=== PATIENT | female | born 1955 | race American Indian/Alaskan Native ===

== ENCOUNTER 2016-08-08 20:51 | Emergency (ER) | payer OTHER ==
[2016-08-08 20:54] VITALS: BP 127/83
[2016-08-08] MEDS ORDERED: Promethazine 12.5 MG in Sodium Chloride 0.9% 50 ML IV ONE (21:44)
[2016-08-08] MEDS ORDERED: Sodium Chloride 0.9% 1,000 ML IV SCH (21:45)
--- NOTE | 2016-08-09 00:05 | EDM.PDOC ---
ED HPI GI/ABDOMINAL - General Chief Complaint: Gastrointestinal Problem Stated Complaint: nausea Time Seen by Provider: 08/08/16 21:00 Source of Information: Reports: Patient, Family, Old records History Limitations: Reports: No limitations, Other (Poor Historian-Poor tracking-) - History of Present Illness INITIAL COMMENTS - FREE TEXT/NARRATIVE: Patient to ER for evaluation of nausea and abdominal distention. She indicates she has had complete work up with EGD and gastroenterology. Patient states was seen at [facility] this am with full work up laboratory testing WNL- IVF hydration with MRI and CT of abdomen. Patient states was discharged from [facility] despite persistant nausea and abdominal discomfort-constipation. She then this evening presents to [facility]. History taken indicates incomplete treatment for H-Pylori as intolerance to antibiotics. Patient verbalizes and is requesting surgical procedure to cut out infection H-Pylori. Symptom Onset Date: 08/08/16 Symptom Onset Time: 08:00 (Abdominal distention-nausea) Timing/Duration: Reports: Getting worse, Waxing/waning, Other (Indicates persistant GI S/S since 2006.) Location: periumbilical Quality: Reports: fullness, other (Unable to burp or pass gas.) Severity: mild Improves with: Reports: vomiting Worsens with: Reports: other (Eating-unable to tolerate food for 1 weeks) Associated Symptoms (-Female): Reports: denies other symptoms, constipation, loss of appetite, nausea/vomiting. 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 IV hydration -nausea control labs including CT and MRI WNL.) - Related Data Allergies/ADRs: Allergies Allergy/AdvReac Type Severity Reaction Status Date / Time No Known Allergies Allergy Verified 08/08/16 20:54 Home Meds: Home Meds Aspirin [Halfprin] 81 mg PO DAILY 07/06/13 [History] Cyclobenzaprine [Flexeril] 10 mg PO DAILY PRN 07/06/13 [History] Multivitamins [Multivitamins] 1 each PO DAILY 07/06/13 [History] Nitroglycerin [Nitrostat] 0.4 mg SL ASDIRECTED PRN 07/06/13 [History] Simvastatin [Zocor] 10 mg PO BEDTIME 07/06/13 [History] Acetaminophen [Tylenol] 650 mg PO ASDIRECTED PRN 07/11/16 [History] Calcium Carbonate/Vitamin D3 [Os-Tate 500+D] 1 tab PO DAILY 07/12/16 [History] Diclofenac Sodium [Voltaren 1% Gel] 1 applic TOP ASDIRECTED PRN 07/12/16 [ History] Ibuprofen 600 mg PO Q6H PRN 07/12/16 [History] Loratadine 10 mg PO DAILY 07/12/16 [History] Ondansetron [Zofran ODT] 4 mg PO Q6H 08/08/16 [History] Past Medical History - Past Health History Medical/Surgical History: Denies Medical/Surgical History HEENT History: Reports: Impaired vision Other HEENT History: wears glasses Cardiovascular History: Reports: Angina, High cholesterol Respiratory History: Reports: None Gastrointestinal History: Reports: Helicobacter pylori, Other (see below) Other Gastrointestinal History: S/P TUBULAR ADENOMA Genitourinary History: Reports: None NANOFABRICATION SPECIALIST History: Reports: None Musculoskeletal History: Reports: Back pain, chronic Neurological History: Reports: None Psychiatric History: Reports: None Endocrine/Metabolic History: Reports: Obesity/BMI 30+ Hematologic History: Reports: None Immunologic History: Reports: None Oncologic (Cancer) History: Reports: None Dermatologic History: Reports: None - Past Surgical History Head Surgeries/Procedures: Reports: None GI Surgical History: Reports: Cholecystectomy Female Surgical History: Reports: Hysterectomy Social & Family History - Family History Family Medical History: Noncontributory - Tobacco Use Smoking Status *Q: Former Smoker Years of Tobacco use: 7 Packs/Tins Daily: 0.5 Used Tobacco, but Quit: Yes Month Tobacco Last Used: 06/2016 Second Hand Smoke Exposure: No - Caffeine Use Caffeine Use: Reports: Coffee, Soda - Alcohol Use Days Per Week of Alcohol Use: 0 - Recreational Drug Use Recreational Drug Use: No ED ROS GENERAL - Review of Systems Review Of Systems: See Below Constitutional: Reports: weakness, fatigue, decreased appetite, weight loss HEENT: Reports: No symptoms Respiratory: Reports: No Symptoms Cardiovascular: Reports: No symptoms Endocrine: Reports: no symptoms GI/Abdominal: Reports: Anorexia, Constipation, Decreased appetite, Distension, Flatus, Nausea. Denies: Black stool, Bloody stool, Diarrhea, Difficulty swallowing (Unable to burp), Hematemesis, Hematochezia, Melena, Mucous in stool , Stool incontinence, Vomiting : Reports: no symptoms Musculoskeletal: Reports: no symptoms Skin: Reports: no symptoms Neurological: Reports: Other (Poor historian). Denies: Weakness Psychiatric: Reports: Anxiety, Confusion, Mood lability, Other (Somatization) Hematologic/Lymphatic: Reports: no symptoms Immunologic: Reports: no symptoms ED EXAM, GI/ABD - Physical Exam Exam: See Below Exam Limited By: No limitations General Appearance: alert, WD/WN, anxious, mild distress, other (Irritable- argrumentative) Eyes: bilateral: normal appearance, EOMI Ears: normal external exam, normal canal, hearing grossly normal Nose: normal inspection, normal mucosa, no blood Throat/Mouth: Normal inspection, Normal lips, Normal voice, No airway compromise Head: atraumatic, normocephalic Neck: normal inspection, supple, non-tender, full range of motion Respiratory/Chest: no respiratory distress, lungs clear, normal breath sounds, no accessory muscle use, chest non-tender Cardiovascular: normal peripheral pulses, regular rate, rhythm, no edema, no JVD , no murmur, no rub GI/Abdominal: normal bowel sounds, soft, non tender, no organomegaly, no distention, no abnormal bruit, no mass. No: guarding, rebound, rigidity, hernia , McBurney's sign (Female) Exam: Deferred Rectal (Female) Exam: Deferred Back Exam: normal inspection, full range of motion Extremities: normal inspection, normal range of motion, non-tender, no pedal edema, normal capillary refill Neurological: alert, oriented, CN II-XII intact, normal gait, normal reflexes, no motor/sensory deficits Psychiatric: normal affect, normal mood, flat affect Skin Exam: Warm, Dry, Intact, Normal color, No rash Lymphatic: no adenopathy Course - Vital Signs Last Recorded V/S: Last Vital Signs Temp 37.3 C 08/08/16 20:51 Pulse 95 08/08/16 20:51 Resp 16 08/08/16 20:51 BP 127/83 08/08/16 20:51 Pulse Ox 99 08/08/16 20:51 - Orders/Labs/Meds Orders: Active Orders 24 hr Category Date Time Status KUB [Abdomen 1V Flat] [CR] Stat Exams 08/09/16 00:20 Ordered OCCULT BLOOD SCREEN [OP] Stat Lab 08/09/16 00:19 Uncollected Sodium Chloride 0.9% [Normal Saline] 1,000 ml Med 08/08/16 21:45 Active IV ASDIRECTED Medication Orders Sodium Chloride (Normal Saline) 1,000 mls @ 75 mls/hr IV ASDIRECTED PINA Last Admin: 08/08/16 22:11 Dose: 75 mls/hr Meds: Medications Generic Name Dose Route Start Last Admin Trade Name Freq PRN Reason Stop Dose Admin Sodium Chloride 1,000 mls @ 75 mls/hr 08/08/16 21:45 08/08/16 22:11 Normal Saline IV 75 mls/hr ASDIRECTED PINA Administration Discontinued Medications Generic Name Dose Route Start Last Admin Trade Name Freq PRN Reason Stop Dose Admin Promethazine HCl 12.5 mg/ 50.5 mls @ 100 mls/hr 08/08/16 21:44 08/08/16 22:13 Sodium Chloride IV 08/08/16 22:14 100 mls/hr STAT ONE Administration Metoclopramide HCl 5 mg 08/09/16 00:52 08/09/16 00:55 Reglan IVPUSH 08/09/16 00:53 Not Given ONETIME ONE Departure - Departure Time of Disposition: 01:07 Disposition: Home, Self-Care 01 Condition: fair Clinical Impression: Gastroenteritis, Constipation, Helicobacter positive gastritis, Helicobacter pylori ab+, Chronic GERD Instructions: Dehydration, Adult, [id number], Nausea and Vomiting, Adult, [id number] Referrals: Provider,Unknown [Primary Care Provider] - 1 Day (Referral back to brokerage office manager for further evaluation and treatment. Discussed Motility studies-use of Reglan 5 mg [id number] of PPI refuses. ) Forms: ED Department Discharge Additional Instructions: Discharged to home with family to see PCP in am. MLP Sign Off - Signature Requirements MLP Sign Off: No - Problem List & Annotations (1) Abdominal distension SNOMED Code(s): 46722072 Code(s): R14.0 - ABDOMINAL DISTENSION (GASEOUS) Status: Acute Current Visit: Yes (2) Unable to pass flatus SNOMED Code(s): 576746803 Code(s): R14.3 - FLATULENCE Status: Acute Current Visit: Yes (3) Chronic GERD SNOMED Code(s): 122983585, 426775191 Code(s): K21.9 - GASTRO-ESOPHAGEAL REFLUX DISEASE WITHOUT ESOPHAGITIS Status: Acute Current Visit: Yes (4) Helicobacter positive gastritis SNOMED Code(s): 57185597 Code(s): K29.70 - GASTRITIS, UNSPECIFIED, WITHOUT BLEEDING; B96.81 - HELICOBACTER PYLORI THE CAUSE OF DISEASES CLASSD [id number] Status: Acute Current Visit: Yes (5) Helicobacter pylori ab+ SNOMED Code(s): 558907570 Code(s): R76.8 - OTHER SPECIFIED ABNORMAL IMMUNOLOGICAL FINDINGS IN SERUM Status: Acute Current Visit: Yes (6) H. pylori infection SNOMED Code(s): 541973241 Code(s): A04.8 - OTHER SPECIFIED BACTERIAL INTESTINAL INFECTIONS Status: Acute Current Visit: No - My Orders Last 24 Hours: My Active Orders 08/08/16 21:45 Sodium Chloride 0.9% [Normal Saline] 1,000 ml IV ASDIRECTED 08/09/16 00:19 OCCULT BLOOD SCREEN [OP] Stat 08/09/16 00:20 KUB [Abdomen 1V Flat] [CR] Stat - Assessment/Plan Last 24 Hours: My Active Orders 08/08/16 21:45 Sodium Chloride 0.9% [Normal Saline] 1,000 ml IV ASDIRECTED 08/09/16 00:19 OCCULT BLOOD SCREEN [OP] Stat 08/09/16 00:20 KUB [Abdomen 1V Flat] [CR] Stat Assessment:: Abdominal Distention History of H-Pylori inadequately treated. Nausea Anxiety Inability to pass flatus. Plan: Patient admitted to observation for IVF and phenergan 12. 5 mg to see if we can get her some relief from nausea. Will obtain records from [facility] To floor to observe for next couple of hours. 0120-Patient sleeping comfortably denies abdominal pain or discomfort. Agitated when questioned about disposition and discharge. Discussed case with patient and family. All records reviewed. Refuses Reglan 5 mg QID or PPI states will F/ U in am with PCP. Advised again clear liquid diet. Reassurance son verbalizes understanding. Discharged in stable condition.
[2016-08-09] MEDS ORDERED: Metoclopramide 10 MG/2 ML SDV IVPUSH ONE (00:52)
== END 2016-08-09 01:20 | disposition home or self-care (01) ==
LOC: CC.ED 20:51
DX: K52.9 Noninfective gastroenteritis and colitis, unspecified (principal); K21.9 Gastro-esophageal reflux disease without esophagitis; K59.00 Constipation, unspecified; K29.70 Gastritis, unspecified, without bleeding; B96.81 Helicobacter pylori [H. pylori] as the cause of diseases classified elsewhere; E78.00 Pure hypercholesterolemia, unspecified; E66.9 Obesity, unspecified; Z90.49 Acquired absence of other specified parts of digestive tract; Z90.710 Acquired absence of both cervix and uterus; Z79.82 Long term (current) use of aspirin; Z79.899 Other long term (current) drug therapy; Z87.891 Personal history of nicotine dependence
CPT/HCPCS: 96361; 96365; 99283; J2550; J7030; J7050; 96366; 96367